=== PATIENT | male | born 1990 | race Caucasian/White ===

== ENCOUNTER 2018-02-24 16:46 | Emergency (ER) | payer MEDICARE, OTHER | END 2018-02-24 18:33 | disposition home or self-care (01) | LOC: ER 18:33 | DX: S91.201A Unspecified open wound of right great toe with damage to nail, initial encounter (principal); H61.21 Impacted cerumen, right ear; W22.8XXA Striking against or struck by other objects, initial encounter; Y93.89 Activity, other specified; Y92.89 Other specified places as the place of occurrence of the external cause; Y99.8 Other external cause status | CPT/HCPCS: 73660; 99284 ==